=== PATIENT | male | born 1975 | race Caucasian/White ===

== ENCOUNTER 2017-02-19 07:41 | Emergency (ER) | payer MEDICAID, OTHER ==
[2017-02-19] MEDS ORDERED: KETOROLAC 60 MG/2 ML VIAL IM STA (08:11)
[2017-02-19] MEDS ORDERED: DEXAMETHASONE 10 MG/ML VIAL PO STA (08:11)
[2017-02-19] MEDS ORDERED: CHERRY SYRUP 10 ML UDC PO ONE (08:27)
[2017-02-19] MEDS ORDERED: DEXAMETHASONE 10 MG/ML VIAL ONE (08:27)
[2017-02-19] MEDS ORDERED: KETOROLAC 60 MG/2 ML VIAL ONE (08:28)
== END 2017-02-19 09:46 | disposition home or self-care (01) ==
DX: S39.012A Strain of muscle, fascia and tendon of lower back, initial encounter (principal); V48.5XXA Car driver injured in noncollision transport accident in traffic accident, initial encounter; Y92.488 Other paved roadways as the place of occurrence of the external cause; Z87.891 Personal history of nicotine dependence
CPT/HCPCS: 71020; 72100; 96372; 99283; 99284; A9270

== ENCOUNTER 2017-02-21 10:12 | Outpatient (CLI) | payer OTHER | END 2017-02-21 10:13 | disposition critical access hospital (66) | LOC: EMS 10:12 | PROVIDERS: ATTEND Surgery | DX: M54.5 Low back pain (principal) | CPT/HCPCS: A0425; A0429 ==

== ENCOUNTER 2017-02-21 10:31 | Emergency (ER) | payer OTHER ==
[2017-02-21] MEDS ORDERED: ALBUTEROL NEB 2.5 MG/3 ML INH STA (11:11)
[2017-02-21] MEDS ORDERED: diazePAM 5 MG TABLET PO STA (11:12)
[2017-02-21] MEDS ORDERED: DEXAMETHASONE 10 MG/ML VIAL PO STA (11:12)
[2017-02-21] MEDS ORDERED: HYDROmorphone 1 MG/ML SYRINGE IM STA (11:12)
[2017-02-21] MEDS ORDERED: KETOROLAC 60 MG/2 ML VIAL IM STA (11:12)
[2017-02-21] MEDS ORDERED: ALBUTEROL NEB 2.5 MG/3 ML INH ONE (11:15)
[2017-02-21] MEDS ORDERED: HYDROmorphone 1 MG/ML SYRINGE ONE (11:28)
[2017-02-21] MEDS ORDERED: DEXAMETHASONE 10 MG/ML VIAL ONE (11:29)
[2017-02-21] MEDS ORDERED: diazePAM 5 MG TABLET PO ONE (11:29)
[2017-02-21] MEDS ORDERED: KETOROLAC 60 MG/2 ML VIAL ONE (11:29)
== END 2017-02-21 12:55 | disposition home or self-care (01) ==
DX: M54.41 Lumbago with sciatica, right side (principal); J45.909 Unspecified asthma, uncomplicated; Z87.891 Personal history of nicotine dependence
CPT/HCPCS: 94640; 94664; 96372; 99283; A9270; J1170; J7613

== ENCOUNTER 2017-02-25 11:55 | Emergency (ER) | payer OTHER ==
[2017-02-25 12:10] VITALS: BP 135/94
--- NOTE | 2017-02-25 12:31 | ED Physician Documentation ---
History of Present Illness - Stated complaint Stated Complaint: RECHECK BACK PX - Chief complaint Chief Complaint: General - History obtained from History obtained from: Patient - Additonal information Additional information: Was seen here recently for low back pain which has improved significantly, but is not quite gone. Still having some trouble bending over. Only taking pain medication occasionally. Also diagnosed with bronchitis and improving on the meds but still has a very productive cough. 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 He couldn't get in with his regular doctor. Review of Systems Constitutional: denies: Fever, Chills Nose: denies: Rhinorrhea / runny nose, Congestion Cardiac: denies: Chest pain / pressure, Palpitations Respiratory: reports: Dyspnea, Cough, Wheezing. denies: Hemoptysis PD PAST MEDICAL HISTORY - Past Medical History Respiratory: Asthma Musculoskeletal: Chronic back pain - Past Surgical History Past Surgical History: No - Present Medications Home Medications: Ambulatory Orders Medication Instructions Recorded Confirmed Cyclobenzaprine [Flexeril] 10 mg PO TID PRN #20 tablet 02/19/17 02/25/17 Amoxicillin 500 mg PO TID #20 capsule 02/21/17 02/25/17 Dexamethasone [Decadron] 8 mg PO DAILY #10 tablet 02/21/17 02/25/17 Hydrocodone/Acetaminophen [[place] 1 each PO Q6H PRN #30 tablet 02/21/17 02/25/17 5-325 Tablet] - Allergies Allergies/Adverse Reactions: Allergies Allergy/AdvReac Type Severity Reaction Status Date / Time expectorant Allergy Unknown Uncoded 02/25/17 12:10 - Social History Does the pt smoke?: No Smoking Status: Former smoker - Immunizations Immunizations are current?: Yes PD ED PE NORMAL - Vitals Vital signs reviewed: Yes - General General: Alert and oriented X 3, No acute distress - Neck Neck: Supple, no meningeal sign, No bony TTP - Cardiac Cardiac: RRR, No murmur - Respiratory Respiratory: No respiratory distress, Other (wheezy with bibasilar rhonchi, has not used the inhaler today) - Abdomen Abdomen: Non tender - Back Back: No spinal TTP - Neuro Neuro: Alert and oriented X 3, Normal speech - Psych Psych: Normal mood, Normal affect Results - Vitals Vitals: Vital Signs - 24 hr 02/25/17 11:58 Temperature 36.8 C Heart Rate 92 Respiratory 18 Rate Blood Pressure 135/94 H O2 Saturation 97 Oxygen O2 Source Room air Departure - Departure Disposition: 01 Home, Self Care Clinical Impression: Bronchitis Back pain Qualifiers: Back pain location: low back pain Chronicity: acute Back pain laterality: midline Sciatica presence: without sciatica Qualified Code(s): M54.5 - Low back pain Condition: Good Record reviewed to determine appropriate education?: Yes Instructions: ED Neck Back Pain General Comments: Your blood pressure was elevated today on check in to the emergency department. This does not mean that you have hypertension, it is a common phenomenon to check into the emergency department and have elevated blood pressure. I recommend that you see your primary care physician within the week to have it rechecked when you're feeling better. Call your doctor to arrange a follow up appointment. Make the next available appointment. In the interim return anytime if worse or if new symptoms develop. Forms: Activity restrictions
== END 2017-02-25 12:47 | disposition home or self-care (01) ==
LOC: ED 11:55
DX: J40 Bronchitis, not specified as acute or chronic (principal); I10 Essential (primary) hypertension; J45.909 Unspecified asthma, uncomplicated; Z87.891 Personal history of nicotine dependence
CPT/HCPCS: 99282

== ENCOUNTER 2017-07-26 10:19 | Outpatient (CLI) | payer OTHER ==
[2017-07-26 10:37] LABS: BASOPHILS % (AUTO) 0.7 %; EOSINOPHILS # (AUTO) 0.2 10^3/uL (0.0-0.7); EOSINOPHILS % (AUTO) 3.4 %; HCT - HEMATOCRIT 44.2 % (42.0-52.0); HGB - HEMOGLOBIN 15.3 g/dL (14.0-18.0); LYMPHOCYTES # (AUTO) 1.9 10^3/uL (1.5-3.5); LYMPHOCYTES % (AUTO) 39.9 %; MEAN CORPUSCULAR HEMOGLOBIN 29.6 pg (27.0-31.0); MEAN CORPUSCULAR HGB CONC 34.7 g/dL (32.0-36.0); MEAN CORPUSCULAR VOLUME 85.4 fL (80.0-94.0); MEAN PLATELET VOLUME 6.5 fL (7.4-11.4); MONOCYTES # (AUTO) 0.5 10^3/uL (0.0-1.0); MONOCYTES % (AUTO) 11.3 %; NEUTROPHILS # (AUTO) 2.1 10^3/uL (1.5-6.6); NEUTROPHILS % (AUTO) 44.7 %; RED BLOOD COUNT 5.17 10^6/uL (4.70-6.10); RED CELL DISTRIBUTION WIDTH 12.2 % (12.0-15.0); UNCORRECTED WHITE BLOOD COUNT 4.8 x10^3/uL; WHITE BLOOD COUNT 4.8 x10^3/uL (4.8-10.8)
[2017-07-26 10:54] LABS: ALBUMIN/GLOBULIN RATIO 1.7 (1.0-2.2); BILIRUBIN,TOTAL 0.8 mg/dL (0.2-1.0); BUN - BLOOD UREA NITROGEN 11 mg/dL (6-20); CALCIUM 9.3 mg/dL (8.5-10.3); CARBON DIOXIDE - CO2 27 mmol/L (21-32); CHLORIDE 103 mmol/L (101-111); CHOL/HDL RATIO 3.7 (<5.0); CHOLESTEROL 192 mg/dL; CREATININE 0.9 mg/dL (0.6-1.2); GFR - MDRD 93 (>89); GLUCOSE 95 mg/dL (70-100); HDL CHOLESTEROL 52 mg/dL; LDL/HDL RATIO 2.4 (<3.6); POTASSIUM 4.1 mmol/L (3.5-5.0); SODIUM 139 mmol/L (135-145); TOTAL PROTEIN 7.4 g/dL (6.7-8.2); TRIGLYCERIDES 66 mg/dL; VLDL CHOLESTEROL 13 mg/dL
== END 2017-07-26 10:20 | disposition home or self-care (01) ==
LOC: LAB 10:19
PROVIDERS: ATTEND Family Medicine
DX: Z00.00 Encounter for general adult medical examination without abnormal findings (principal)
CPT/HCPCS: 80053; 80061; 85025

== ENCOUNTER 2019-08-16 14:36 | Outpatient (CLI) | payer OTHER ==
[2019-08-16 18:58] LABS: BASOPHILS % (AUTO) 0.4 %; EOSINOPHILS # (AUTO) 0.2 10^3/uL (0.0-0.7); EOSINOPHILS % (AUTO) 4.6 %; HGB - HEMOGLOBIN 15.1 g/dL (14.0-18.0); LYMPHOCYTES # (AUTO) 1.6 10^3/uL (1.5-3.5); LYMPHOCYTES % (AUTO) 29.9 %; MEAN CORPUSCULAR HEMOGLOBIN 30.1 pg (27.0-31.0); MEAN CORPUSCULAR HGB CONC 34.3 g/dL (32.0-36.0); MEAN CORPUSCULAR VOLUME 87.8 fL (80.0-94.0); MEAN PLATELET VOLUME 9.3 fL (7.4-11.4); MONOCYTES # (AUTO) 0.5 10^3/uL (0.0-1.0); MONOCYTES % (AUTO) 9.8 %; NEUTROPHILS # (AUTO) 2.9 10^3/uL (1.5-6.6); NEUTROPHILS % (AUTO) 55.3 %; PLT - PLATELET COUNT 245 10^3/uL (130-450); RED BLOOD COUNT 5.01 10^6/uL (4.70-6.10); RED CELL DISTRIBUTION WIDTH 12.6 % (12.0-15.0); WHITE BLOOD COUNT 5.2 x10^3/uL (4.8-10.8)
[2019-08-16 19:36] LABS: HB2 TOTAL 15.1 g/dL; HEMOGLOBIN A1C 0.53 g/dL; HEMOGLOBIN A1C % 5.4 % (4.6-6.2)
[2019-08-16 19:42] LABS: ALBUMIN 4.2 g/dL (3.2-5.5); ALBUMIN/GLOBULIN RATIO 1.3 (1.0-2.2); BILIRUBIN,TOTAL 0.6 mg/dL (0.2-1.0); CREATININE 0.9 mg/dL (0.6-1.2); TOTAL PROTEIN 7.4 g/dL (6.7-8.2)
== END 2019-08-16 23:59 | disposition home or self-care (01) ==
LOC: LAB.WCP 14:36
PROVIDERS: ATTEND Nurse Practitioner Family
DX: R20.2 Paresthesia of skin (principal)
CPT/HCPCS: 36415; 80053; 82607; 83036; 84443; 85025; 85651

== ENCOUNTER 2019-08-16 15:18 | Outpatient (CLI) | payer OTHER ==
--- NOTE | 2019-08-16 16:17 | XRAY Report ---
Reason: PARESTHESIA BILATERAL LEGS Procedure Date: 08/16/2019 Accession Number: [id number] / [id number] Procedure: WCP - Lumbar Spine 2 View CPT Code: Final Report FULL RESULT: EXAM: LUMBOSACRAL SPINE RADIOGRAPHY EXAM DATE: 08/16/2019 03:18 PM. CLINICAL HISTORY: PARESTHESIA BILATERAL LEGS. COMPARISONS: CHEST 2 VIEW PA/LAT 02/19/2017 8:11 AM. TECHNIQUE: 3 views. FINDINGS: Alignment: Minimal thoracolumbar dextroconvex scoliosis followed by levoconvex lumbar scoliosis, less than 3 degrees is potentially positional and can be seen with muscle spasm. Comparison to prior is limited by absence of frontal view on the February 2017 study. Bones: Five [id number] lumbar vertebral bodies are present. No fractures or bone lesions. Disks: Normal. Disk heights are maintained. Facets: Mild low lumbar spine degenerative disk. Sacroiliac Joints: Unremarkable. Soft Tissues: Normal. The visualized bowel gas pattern is normal. IMPRESSION: Minimal thoracolumbar scoliosis, potentially positional. Otherwise, no significant degenerative changes. RADIA
== END 2019-08-16 23:59 | disposition home or self-care (01) ==
LOC: DI.WCP 15:18
PROVIDERS: ATTEND Nurse Practitioner Family
DX: M41.9 Scoliosis, unspecified (principal)
CPT/HCPCS: 72100

== ENCOUNTER 2020-02-03 08:00 | Outpatient (CLI) | payer OTHER ==
[2020-02-03 17:49] LABS: BASOPHILS % (AUTO) 0.5 %; EOSINOPHILS # (AUTO) 0.1 10^3/uL (0.0-0.7); EOSINOPHILS % (AUTO) 1.5 %; HGB - HEMOGLOBIN 14.5 g/dL (14.0-18.0); LYMPHOCYTES # (AUTO) 1.7 10^3/uL (1.5-3.5); LYMPHOCYTES % (AUTO) 27.9 %; MEAN CORPUSCULAR HEMOGLOBIN 29.7 pg (27.0-31.0); MEAN CORPUSCULAR HGB CONC 34.4 g/dL (32.0-36.0); MEAN CORPUSCULAR VOLUME 86.1 fL (80.0-94.0); MEAN PLATELET VOLUME 8.9 fL (7.4-11.4); MONOCYTES # (AUTO) 0.4 10^3/uL (0.0-1.0); MONOCYTES % (AUTO) 7.1 %; NEUTROPHILS # (AUTO) 3.8 10^3/uL (1.5-6.6); NEUTROPHILS % (AUTO) 62.7 %; PLT - PLATELET COUNT 332 10^3/uL (130-450); RED BLOOD COUNT 4.89 10^6/uL (4.70-6.10); RED CELL DISTRIBUTION WIDTH 12.3 % (12.0-15.0); WHITE BLOOD COUNT 6.1 x10^3/uL (4.8-10.8)
[2020-02-03 17:56] LABS: ALBUMIN 3.7 g/dL (3.2-5.5); ALBUMIN/GLOBULIN RATIO 0.9 (1.0-2.2); BILIRUBIN,TOTAL 0.3 mg/dL (0.2-1.0); CALCIUM 8.7 mg/dL (8.5-10.3); TOTAL PROTEIN 7.7 g/dL (6.7-8.2)
[2020-02-03 18:03] LABS: BILIRUBIN,URINE NEGATIVE (NEGATIVE); GLUCOSE, URINE (UA) NEGATIVE (NEGATIVE); KETONES,URINE (UA) NEGATIVE (NEGATIVE); LEUKOCYTE ESTERASE, URINE NEGATIVE (NEGATIVE); NITRITE,URINE NEGATIVE (NEGATIVE); OCCULT BLOOD,URINE TRACE-INTA (NEGATIVE); PROTEIN,URINE NEGATIVE (NEGATIVE); UROBILINOGEN,URINE 0.2 (NORMAL) E.U./dL (NORMAL)
[2020-02-03 18:07] LABS: CLARITY,URINE CLEAR (CLEAR)
== END 2020-02-03 23:59 | disposition home or self-care (01) ==
LOC: LAB.WCP 08:00
PROVIDERS: ATTEND Family Medicine
DX: G72.9 Myopathy, unspecified (principal)
CPT/HCPCS: 36415; 80053; 81001; 81003; 82550; 85025; 85651; 87086

== ENCOUNTER 2020-02-23 11:57 | Outpatient (CLI) | payer OTHER | END 2020-02-23 23:59 | disposition home or self-care (01) | LOC: LAB.WCP 11:57 | PROVIDERS: ATTEND Family Medicine | DX: G72.9 Myopathy, unspecified (principal) | CPT/HCPCS: 36415; 85651 ==

== ENCOUNTER 2020-12-31 03:20 | Outpatient (CLI) | payer OTHER | END 2020-12-31 03:21 | disposition critical access hospital (66) | LOC: EMS 03:20 | PROVIDERS: ATTEND Emergency Medicine | DX: Z04.6 Encounter for general psychiatric examination, requested by authority (principal); Z78.1 Physical restraint status | CPT/HCPCS: A0425; A0429 ==

== ENCOUNTER 2020-12-31 09:45 | Emergency (ER) | payer OTHER ==
[2020-12-31] MEDS ORDERED: KETAMINE 500 MG/10 ML VIAL IM ONE (09:46)
[2020-12-31] MEDS ORDERED: OLANZapine 10 MG VIAL IM ONE (09:46)
--- NOTE | 2020-12-31 14:54 | ED Physician Documentation ---
PD HPI MHE - Stated complaint Stated Complaint: MHE - Chief complaint Chief Complaint: MHE - History obtained from History obtained from: Patient - History of Present Illness Primary symptom: Depression Timing - onset: Yesterday Contributing factors: Family, Substance abuse - drugs Similar symptoms before: No diagnosis Recently seen: Not recently seen - Additional information Additional information: Previous well 45-year-old male presents to the emergency department via ambulance after being picked up by police walking in the streets of [place] into traffic, yelling loudly at people and acting aggressive. He denies SI or HI and when he arrived to the ED he was intoxicated on methamphetamine and he was a poor historian. He exhibited aggressive passive aggressive behavior, required restraint and ketamine for specimens. He was found to be intoxicated on methamphetamine and he was kept in the ED overnight and as he metabolizes he is no longer aggressive and he is cooperative. He has some large blisters on his feet from walking from [place] to the other side of [place] in bare feet. Review of Systems Constitutional: denies: Fever Eyes: denies: Decreased vision Ears: denies: Ear pain Nose: denies: Congestion Throat: denies: Sore throat Cardiac: denies: Chest pain / pressure, Palpitations Respiratory: denies: Dyspnea, Cough GI: denies: Abdominal Pain, Nausea, Vomiting : denies: Dysuria, Frequency Skin: denies: Rash, Abrasion (s) Musculoskeletal: denies: Neck pain, Back pain, Extremity pain Neurologic: denies: Generalized weakness, Focal weakness, Numbness Psychiatric: reports: Depressed, Insomnia. denies: Suicidal, Homicidal, Hallucinations, Delusions, Anxiety PD PAST MEDICAL HISTORY - Past Medical History Respiratory: Asthma Musculoskeletal: Chronic back pain - Past Surgical History Past Surgical History: No - Present Medications Home Medications: Ambulatory Orders Medication Instructions Recorded Confirmed Cyclobenzaprine [Flexeril] 10 mg PO TID PRN #20 tablet 02/19/17 02/25/17 Amoxicillin 500 mg PO TID #20 capsule 02/21/17 02/25/17 Hydrocodone/Acetaminophen [[place] 1 each PO Q6H PRN #30 tablet 02/21/17 02/25/17 5-325 Tablet] dexAMETHasone [Decadron] 8 mg PO DAILY #10 tablet 02/21/17 02/25/17 - Allergies Allergies/Adverse Reactions: Allergies Allergy/AdvReac Type Severity Reaction Status Date / Time expectorant Allergy Unknown Uncoded 02/25/17 12:10 - Social History Does the pt smoke?: No Smoking Status: Former smoker - Immunizations Immunizations are current?: Yes PD ED PE NORMAL - Vitals Vital signs reviewed: Yes (13:09 hypertensive otherwise normal) - General General: Alert and oriented X 3, No acute distress, Well developed/nourished - HEENT HEENT: Atraumatic, PERRL, EOMI - Respiratory Respiratory: No respiratory distress - Derm Derm: Normal color, Warm and dry - Extremities Extremities: Other (There is tenderness to the dorsum of the left wrist with pain on ROM testing. No crepitance and no deformity. 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, No motor deficit, No sensory deficit, Normal speech Eye Opening: Spontaneous Motor: Obeys Commands Verbal: Oriented GCS Score: 15 - Psych Psych: Normal mood, Normal affect Results - Vitals Vitals: Vital Signs - 24 hr 12/31/20 12/31/20 12/31/20 10:10 10:15 11:00 Temperature 37.2 C 36.8 C Heart Rate 145 H 90 76 Respiratory 25 H 17 17 Rate Blood Pressure 188/125 H 150/102 H 167/87 H O2 Saturation 97 99 97 12/31/20 12/31/20 12/31/20 12:39 13:09 17:09 Temperature 36.7 C Heart Rate 86 85 80 Respiratory 18 16 16 Rate Blood Pressure 159/93 H 138/88 H 155/72 H O2 Saturation 96 100 100 Oxygen O2 Source Room air - EKG (time done) 1503 Rate: Rate (enter#) (66) Rhythm: NSR Intervals: Prolonged OH. No: Prolonged QT Ischemia: Normal ST segments Compare to prior EKG: Old EKG unavailable Computer interpretation: Agree with computer - Labs Labs: Laboratory Tests 12/31/20 14:55 Nasal Adenovirus (PCR) NOT DETECTED Nasal B. parapertussis DNA (PCR) NOT DETECTED Nasal Coronavir 229E PCR NOT DETECTED Nasal Coronavir HKU1 PCR NOT DETECTED Nasal Coronavir NL63 PCR NOT DETECTED Nasal Coronavir OC43 PCR NOT DETECTED Nasal Enterovir/Rhinovir PCR DETECTED A Nasal Influenza B PCR NOT DETECTED Nasal Influenza A PCR NOT DETECTED Nasal Parainfluen 1 PCR NOT DETECTED Nasal Parainfluen 2 PCR NOT DETECTED Nasal Parainfluen 3 PCR NOT DETECTED Nasal Parainfluen 4 PCR NOT DETECTED Nasal RSV (PCR) NOT DETECTED Nasal B.pertussis DNA PCR NOT DETECTED Nasal C.pneumoniae (PCR) NOT DETECTED Krishan Human Metapneumo PCR NOT DETECTED Nasal M.pneumoniae (PCR) NOT DETECTED Nasal SARS-CoV-2 (PCR) NOT DETECTED PD MEDICAL DECISION MAKING - ED course Complexity details: reviewed old records, reviewed results, re-evaluated patient, considered differential, d/w patient ED course: 45-year-old male presents to the emergency department with aggressive behavior while intoxicated on methamphetamine. When he cele he is not wanting us to contact his family. He indicates that he is walked away from his family last night and wants to leave the [place]. He has lived on the [place] for the past 20 years, He has a family with a son and daughter and . He has had a job working on [employer] for the last 20 years and he is quit his job as well. He states that he is not sleeping well and he just does not feel like continuing to do anything. He feels that it is useless to continue to work. The patient is demonstrating symptoms of depression and I discussed with the patient treatment of depression and he became somewhat interested. Interested enough to have the social worker psychiatric attempted placement. She was unable to do this as the acuity did not appear high enough for inpatient treatment. He does have available through [facility] intensive outpatient management. He is encouraged to follow-up with [facility] and he is given resources from the social worker psychiatric and [facility]. Departure - Departure Disposition: 01 Home, Self Care Clinical Impression: Methamphetamine abuse Depression Qualifiers: Depression Type: major depressive disorder Major depression recurrence: unspecified whether recurrent Active/Remission status: currently active Major depression episode severity: moderate Qualified Code(s): F32.1 - Major depressive disorder, single episode, moderate Friction blisters of sole of left foot Qualifiers: Encounter type: initial encounter Qualified Code(s): S90.822A - Blister (nonthermal), left foot, initial encounter Friction blister of the foot Qualifiers: Encounter type: initial encounter Laterality: right Qualified Code(s): S90.821A - Blister (nonthermal), right foot, initial encounter Condition: Stable Instructions: ED Depression, ED Drug Abuse General Follow-Up: [facility] [Provider Group] Comments: Today a lot of the symptoms that you are having regularly appear to be related to depression. Treatment of depression can make life much more tolerable. Follow-up with the outpatient intensive psychiatric treatment available through your [facility] insurance. Discharge Date/Time: 12/31/20 16:45
[2020-12-31 15:50] LABS: CORONAVIRUS 229E-RESP PCR NOT DETECTED; CORONAVIRUS HKU1-RESP PCR NOT DETECTED; CORONAVIRUS NL63-RESP PCR NOT DETECTED; CORONAVIRUS OC43-RESP PCR NOT DETECTED; HUMAN METAPNEUMOVIRUS NOT DETECTED; INFLUENZA A- RESP PCR PANEL NOT DETECTED; RHINOVIRUS/ENTEROVIRUS DETECTED; SARS-CoV-2 -RESP PCR PANEL NOT DETECTED
[2020-12-31 15:51] LABS: B. PARAPERTUSSIS- RESP PCR PAN NOT DETECTED; B. PERTUSSIS- RESP PCR PANEL NOT DETECTED; C. PNEUMONIAE- RESP PCR PANEL NOT DETECTED; INFLUENZA B - RESP PCR PANEL NOT DETECTED; M. PNEUMONIAE- RESP PCR PANEL NOT DETECTED; PARAINFLUENZA VIRUS 1 NOT DETECTED; PARAINFLUENZA VIRUS 2 NOT DETECTED; PARAINFLUENZA VIRUS 3 NOT DETECTED; PARAINFLUENZA VIRUS 4 NOT DETECTED; RSV- RESP PCR PANEL NOT DETECTED
--- NOTE | 2020-12-31 16:08 | XRAY Report ---
PROCEDURE: Wrist 4 View LT INDICATIONS: dorsal pain TECHNIQUE: 4 views of the wrist were acquired. COMPARISON: None. FINDINGS: Bones: No fractures or dislocations. No suspicious bony lesions. Scaphoid view: Intact. Soft tissues: No suspicious soft tissue calcifications. Small calcification in the subcutaneous tiss ues at the volar aspect of the distal radius. IMPRESSION: No acute osseous abnormality. Reviewed by: Bebo Patel MD on 12/31/2020 3:07 PM [facility] Approved by: Bebo Patel MD on 12/31/2020 3:07 PM [facility]A Station ID: [id number]
[2020-12-31 17:10] VITALS: BP 155/72
[2021-01-03 09:51] LABS: MUDS CUTOFF CONCENTRATIONS CUTOFF CONC BELOW:
[2021-01-03 09:54] LABS: BASOPHILS % (AUTO) 0.2 %; EOSINOPHILS % (AUTO) 0.1 %; HCT - HEMATOCRIT 45.9 % (42.0-52.0); HGB - HEMOGLOBIN 15.8 g/dL (14.0-18.0); LYMPHOCYTES # (AUTO) 1.1 10^3/uL (1.5-3.5); LYMPHOCYTES % (AUTO) 6.1 %; MEAN CORPUSCULAR HGB CONC 34.4 g/dL (32.0-36.0); MEAN CORPUSCULAR VOLUME 87.3 fL (80.0-94.0); MEAN PLATELET VOLUME 8.5 fL (7.4-11.4); MONOCYTES # (AUTO) 1.1 10^3/uL (0.0-1.0); MONOCYTES % (AUTO) 6.2 %; NEUTROPHILS # (AUTO) 15.6 10^3/uL (1.5-6.6); NEUTROPHILS % (AUTO) 86.9 %; PLT - PLATELET COUNT 338 10^3/uL (130-450); RED BLOOD COUNT 5.26 10^6/uL (4.70-6.10); WHITE BLOOD COUNT 17.9 x10^3/uL (4.8-10.8)
[2021-01-03 09:57] LABS: BILIRUBIN,URINE NEGATIVE (NEGATIVE); CLARITY,URINE CLEAR (CLEAR); COCAINE SCREEN URINE NEGATIVE (NEGATIVE); GLUCOSE, URINE (UA) NEGATIVE (NEGATIVE); KETONES,URINE (UA) TRACE mg/dL (NEGATIVE); LEUKOCYTE ESTERASE, URINE NEGATIVE (NEGATIVE); METHAMPHETAMINES SCREEN, URINE POSITIVE (NEGATIVE); NITRITE,URINE NEGATIVE (NEGATIVE); OCCULT BLOOD,URINE NEGATIVE (NEGATIVE); OPIATE SCREEN, URINE NEGATIVE (NEGATIVE); PROTEIN,URINE TRACE mg/dL (NEGATIVE); THC CANNABINOID SCREEN, URINE POSITIVE (NEGATIVE); UROBILINOGEN,URINE 0.2 (NORMAL) E.U./dL (NORMAL)
[2021-01-03 09:58] LABS: AMPHETAMINE SCREEN,URINE POSITIVE (NEGATIVE); BARBITURATE SCREEN,UR NEGATIVE (NEGATIVE); BENZODIAZEPINES SCREEN, URINE NEGATIVE (NEGATIVE); METHADONE SCREEN, URINE NEGATIVE (NEGATIVE); OXYCODONE SCREEN, URINE NEGATIVE (NEGATIVE); PROPOXYPHENE SCREEN, URINE NEGATIVE (NEGATIVE); TRICYCLIC ANTIDEPRESSANT,URINE NEGATIVE (NEGATIVE)
[2021-01-03 10:01] LABS: ACETAMINOPHEN < 10 ug/mL (10-30); ALBUMIN 4.8 g/dL (3.2-5.5); ALBUMIN/GLOBULIN RATIO 1.5 (1.0-2.2); ALKALINE PHOSPHATASE 70 IU/L (42-121); ALT ALANINE AMINOTRANSFERASE 30 IU/L (10-60); AST ASPARTATE AMINOTRANSFERASE 31 IU/L (10-42); BUN - BLOOD UREA NITROGEN 16 mg/dL (6-20); CALCIUM 8.6 mg/dL (8.5-10.3); CARBON DIOXIDE - CO2 16 mmol/L (21-32); CHLORIDE 102 mmol/L (101-111); CREATININE 1.7 mg/dL (0.6-1.2); ETOH - ETHANOL < 5.0 mg/dL; GFR - MDRD 44 (>89); GLUCOSE 198 mg/dL (70-100); LIPASE 25 U/L (22-51); POTASSIUM 3.2 mmol/L (3.5-5.0); SALICYLATE < 6.0 mg/dL; SODIUM 136 mmol/L (135-145); TOTAL PROTEIN 8.1 g/dL (6.7-8.2)
--- OUTSIDE RECORDS SUMMARY | 2021-01-16 14:32 | EXTERNAL MEDICAL SUMMARY RPT | Continuity of Care Document ---
:1975 Demographics Phone Unavailable Preferred Language Unknown Marital Status Unknown Church Affiliation Unknown Race Unknown Ethnic Group Unknown Author Organization [facility] Address [address] [id number] Phone Social History date description facility [phone]
== END 2020-12-31 16:45 | disposition home or self-care (01) ==
LOC: ED 09:45
DX: F15.129 Other stimulant abuse with intoxication, unspecified (principal); F32.1 Major depressive disorder, single episode, moderate; S90.822A Blister (nonthermal), left foot, initial encounter; S90.821A Blister (nonthermal), right foot, initial encounter; Y93.01 Activity, walking, marching and hiking; Z87.891 Personal history of nicotine dependence; Z20.822 Contact with and (suspected) exposure to COVID-19
CPT/HCPCS: 0202U; 36415; 73110; 80053; 80306; 80307; 80320; 80329; 81003; 83690; 84443; 85025; 93005; 99284; 81001; 87086

== ENCOUNTER 2021-01-02 14:44 | Emergency (ER) | payer OTHER ==
--- NOTE | 2021-01-02 16:36 | XRAY Report ---
PROCEDURE: Forearm LT INDICATIONS: swelling TECHNIQUE: 2 views of the forearm were acquired. COMPARISON: None. FINDINGS: Bones: No fractures or dislocations. No suspicious bony lesions. 2 mm radiopaque density projects in the ulnar soft tissues of the distal forearm suggestive of foreig n body. Distal forearm soft tissue swelling. IMPRESSION: No fracture. Possible radiopaque foreign body projecting the ulnar sided soft tissues of the distal forearm. Reviewed by: Jose Dennis MD on 01/02/2021 4:34 PM PDT Approved by: Jose Dennis MD on 01/02/2021 4:34 PM PDT Station ID: [id number]
--- NOTE | 2021-01-02 16:39 | XRAY Report ---
PROCEDURE: Wrist 3 View LT INDICATIONS: swelling, weakness TECHNIQUE: 3 views of the wrist were acquired. COMPARISON: 12/30/2020 FINDINGS: Bones: No fractures or dislocations. No suspicious bony lesions. First CMC and triscaphe joint deg eneration. 2 mm radiopaque calcification versus foreign body projecting in the ulnar sided soft tissues of the d istal forearm IMPRESSION: Distal forearm calcification versus foreign body. Recommend clinical correlation. Chronic degenerative changes as above. Reviewed by: Jose Dennis MD on 01/02/2021 4:37 PM PDT Approved by: Jose Dennis MD on 01/02/2021 4:37 PM PDT Station ID: [id number]
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
[2021-01-02 17:57] VITALS: BP 138/84
== END 2021-01-02 17:57 | disposition home or self-care (01) ==
LOC: ED 14:44
DX: R22.32 Localized swelling, mass and lump, left upper limb (principal); Z87.891 Personal history of nicotine dependence
CPT/HCPCS: 99283

== ENCOUNTER 2021-05-19 05:12 | Outpatient (CLI) | payer OTHER | END 2021-05-19 05:13 | disposition critical access hospital (66) | LOC: EMS 05:12 | DX: R06.02 Shortness of breath (principal) | CPT/HCPCS: A0425; A0429 ==

== ENCOUNTER 2021-05-19 05:24 | Emergency (ER) | payer OTHER ==
--- NOTE | 2021-05-19 05:31 | ED Physician Documentation ---
History of Present Illness - Stated complaint Stated Complaint: SOA - History obtained from History obtained from: Patient, EMS - Additonal information Additional information: 46-year-old man with history of methamphetamine abuse and asthma presents with acute shortness of breath in the early hours of this morning. He was found by EMS along the side of the road complaining of acute shortness of breath. His respiratory rate was 20 per the report and his O2 sat was 99% on room air. On arrival to the emergency department patient is speaking in full sentences, stating "I know if I had a panic attack or what". Denies fevers, coughing more than usual, chest pain. Shortness breath is improved. Review of Systems Ten Systems: 10 systems reviewed and negative Constitutional: denies: Fever, Chills Cardiac: reports: Palpitations. denies: Chest pain / pressure Respiratory: reports: Dyspnea. denies: Cough GI: denies: Nausea PD PAST MEDICAL HISTORY - Past Medical History Respiratory: Asthma Musculoskeletal: Chronic back pain - Past Surgical History Past Surgical History: No - Present Medications Home Medications: Ambulatory Orders Medication Instructions Recorded Confirmed No Known Home Medications 05/19/21 05/19/21 - Allergies Allergies/Adverse Reactions: Allergies Allergy/AdvReac Type Severity Reaction Status Date / Time erythromycin ethylsuccinate * Allergy Anaphylaxis Verified 05/19/21 05:41 [From Pediazole] sulfisoxazole acetyl * Allergy Anaphylaxis Verified 05/19/21 05:41 [From Pediazole] - Social History Does the pt smoke?: No Smoking Status: Former smoker - Immunizations Immunizations are current?: Yes PD ED PE NORMAL - Vitals Vital signs reviewed: Yes - General General: Alert and oriented X 3, No acute distress, Well developed/nourished, Other (Disheveled appearing) - HEENT HEENT: Atraumatic, PERRL, EOMI, Moist mucous membranes, Pharynx benign - Neck Neck: Supple, no meningeal sign - Cardiac Cardiac: RRR - Respiratory Respiratory: No respiratory distress, Clear bilaterally - Abdomen Abdomen: Non tender, Non distended - Derm Derm: Normal color, Warm and dry - Extremities Extremities: No deformity - Neuro Neuro: Alert and oriented X 3 - Psych Psych: Normal mood, Normal affect Results - Vitals Vitals: Vital Signs - 24 hr 05/19/21 05/19/21 05:30 05:37 Temperature 36.6 C Heart Rate 99 103 H Respiratory 21 17 Rate Blood Pressure 144/88 H 129/96 H O2 Saturation 99 100 Oxygen O2 Source Room air - EKG (time done) 0532 Rate: Rate (enter#) (99) Rhythm: NSR Ischemia: Other (benign early repol. no signs of ischemia) PD MEDICAL DECISION MAKING - ED course ED course: 46-year-old man presents via EMS with subjective shortness of breath, with normal vitals in the field. Vital signs and physical exam here are normal. Will obtain screening chest x-ray and EKG, however his symptoms have already improved here in the emergency department. CXR and ekg noncontributory. patient feeling better. Plan for him to follow-up outpatient with his primary Dr. Jackson. Return precautions given. Departure - Departure Disposition: 01 Home, Self Care Clinical Impression: Shortness of breath Condition: Good Instructions: ED Dyspnea Shortness of Breath Comments: You are seen in the emergency department for shortness of breath that resolved. Your vital signs and physical exam were normal and your chest x-ray and EKG did not show any emergent findings. Please return to the emergency department if you have any new or worsening symptoms or other concerns. Follow-up with Dr. Jackson.
[2021-05-19 06:34] VITALS: BP 131/73
--- NOTE | 2021-05-19 08:59 | XRAY Report ---
PROCEDURE: Chest 2 View X-Ray INDICATIONS: Short of breath, sudden onset this evening TECHNIQUE: 2 view(s) of the chest. COMPARISON: 02/19/2017 FINDINGS: Surgical changes and devices: None. Lungs and pleura: No pleural effusions or pneumothorax. Lungs are clear. Mediastinum: Mediastinal contours are normal. Heart size is normal. Bones and chest wall: No suspicious bony abnormalities. Soft tissues appear unremarkable. IMPRESSION: Normal. Note: No significant discrepancy from the preliminary report. Reviewed by: Zeyad Quiñones MD on 05/19/2021 7:58 AM [facility] Approved by: Zeyad Quiñones MD on 05/19/2021 7:58 AM N[facility]A Station ID: [id number]
== END 2021-05-19 07:04 | disposition home or self-care (01) ==
LOC: EDUNIT# → ED 05:24
DX: R06.02 Shortness of breath (principal); Z87.891 Personal history of nicotine dependence; Z20.822 Contact with and (suspected) exposure to COVID-19
CPT/HCPCS: 93005; 99283; 99284